=== PATIENT | female | born 1985 | race Caucasian/White ===

== ENCOUNTER 2019-05-03 14:36 | Outpatient (CLI) | payer BC | END 2019-05-03 14:37 | disposition home or self-care (01) | LOC: LAB 14:36 | PROVIDERS: ATTEND Obstetrics & Gynecology | DX: O09.40 Supervision of pregnancy with grand multiparity, unspecified trimester (principal); Z3A.00 Weeks of gestation of pregnancy not specified | CPT/HCPCS: 36415; 82950; 85027; 86850 ==

== ENCOUNTER 2019-05-13 14:47 | Outpatient (CLI) | payer BC ==
[2019-05-13 15:12] LABS: HGB - HEMOGLOBIN 12.3 g/dL (12.0-16.0); MEAN CORPUSCULAR HEMOGLOBIN 30.4 pg (27.0-31.0); MEAN CORPUSCULAR HGB CONC 33.2 g/dL (32.0-36.0); MEAN CORPUSCULAR VOLUME 91.6 fL (81.0-99.0); MEAN PLATELET VOLUME 10.9 fL (7.9-10.8); RED BLOOD COUNT 4.04 10^6/uL (4.20-5.40); RED CELL DISTRIBUTION WIDTH 12.7 % (12.0-15.0); WHITE BLOOD COUNT 13.6 x10^3/uL (4.8-10.8)
== END 2019-05-13 14:48 | disposition home or self-care (01) ==
LOC: LAB 14:47
PROVIDERS: ATTEND Obstetrics & Gynecology
DX: O46.93 Antepartum hemorrhage, unspecified, third trimester (principal); Z3A.00 Weeks of gestation of pregnancy not specified; O09.523 Supervision of elderly multigravida, third trimester
CPT/HCPCS: 36415; 85027

== ENCOUNTER 2019-05-15 07:34 | Outpatient (CLI) | payer BC ==
--- NOTE | 2019-05-15 13:41 | Ultrasound Report ---
Reason: SUPERVISION OF Procedure Date: 05/15/2019 Accession Number: [id number] / [id number] Procedure: US - OB Detailed Eval CPT Code: Final Report FULL RESULT: EXAM: COMPLETE OBSTETRICAL ULTRASOUND EXAM DATE: 05/15/2019 10:38 AM. CLINICAL HISTORY: anatomic survey. COMPARISON: None. TECHNIQUE: Real-time sonographic evaluation of the fetus performed by the mainframe systems engineer. Multiple entry level marketing representative static images were saved for review. Additional transvaginal imaging to more accurately evaluate cervical length/placental position/etc. The examination is markedly limited by advanced gestational age. DATING: Established EGA 30 weeks 3 days with ALYSSIA 07/21/2019 based on reported working due date. EGA 31 weeks 1 day with ALYSSIA 07/16/2019 based on LMP. EGA 31 weeks 0 days with ALYSSIA 07/17/2019 based on the current ultrasound. GENERAL EVALUATION Lundberg . Cardiac activity: 147 bpm. movement: Visualized. Presentation: Cephalic. Placenta: Anterior position. No evidence for previa. Umbilical cord: 3 vessel cord. Central placental cord origin. Amniotic fluid: Subjectively normal. MVP 2.7 cm and CADEN 8.4 cm. BIOMETRY Bi-Parietal Diameter (BPD): 7.7 cm, 31 weeks 0 days Head Circumference (HC): 28.5 cm, 31 weeks 2 days Abdominal Circumference (AC): 27.1 cm, 31 weeks 1 day Femur Length (FL): 5.7 cm, 30 weeks 0 days Estimated Weight: 1648 g, 52nd percentile for 30 weeks 3 days. ANATOMY The anatomy survey is limited. Visualization of intracranial structures is limited by acoustic windows and the cisterna magna as well as lateral ventricles are not well seen. The entire spine is not well-seen due to position in the advanced gestation. The coronal face and hands as well as the right and left upper extremities are not well seen. The midline falx, choroid plexus, cerebellum and profile as well as nasal bone view including nose and lips are adequately seen and normal. Cardiac situs is seen as normal with normal visualization of the four-chamber heart and left and right ventricular outflow tracts. The heart stomach relationship as well as the relationship to the bladder is normal and the visualized diaphragm appears normal. Kidneys and bladder as well as cord insertion appear normal. The bilateral lower extremities including leg foot relationships appear normal. MATERNAL STRUCTURES Uterus: Unremarkable. Cervix: Long and closed. Transabdominal length at least 3.6 cm. The bilateral adnexa are not well seen, presumably due to advanced gestational age. Right oophorectomy is reported. Free fluid: None. IMPRESSION: 1. Lundberg live intrauterine with gestational age 30 weeks 3 days based on reported working due date. 2. Estimated weight is within expected limits for assigned dating. 3. Limited anatomy survey with limitation of advanced gestational age. The face/lips and profile/nasal bone views are normal. RADIA
== END 2019-05-15 07:35 | disposition home or self-care (01) ==
LOC: DI 07:34
PROVIDERS: ATTEND Obstetrics & Gynecology
DX: O09.523 Supervision of elderly multigravida, third trimester (principal); Z3A.30 30 weeks gestation of pregnancy
CPT/HCPCS: 76811

== ENCOUNTER 2019-05-31 08:00 | Outpatient (CLI) | payer BC | END 2019-05-31 23:59 | disposition home or self-care (01) | LOC: LAB.R 08:00 | PROVIDERS: ATTEND Obstetrics & Gynecology | DX: O09.523 Supervision of elderly multigravida, third trimester (principal); Z3A.00 Weeks of gestation of pregnancy not specified | CPT/HCPCS: 82731; 87797 ==

== ENCOUNTER 2019-05-31 11:19 | Outpatient (CLI) | payer BC ==
[2019-05-31 11:32] VITALS: BP 126/73
[2019-05-31 13:08] LABS: BASOPHILS % (AUTO) 0.3 %; EOSINOPHILS # (AUTO) 0.2 10^3/uL (0.0-0.7); EOSINOPHILS % (AUTO) 1.4 %; LYMPHOCYTES # (AUTO) 2.4 10^3/uL (1.5-3.5); LYMPHOCYTES % (AUTO) 20.4 %; MEAN CORPUSCULAR HEMOGLOBIN 30.1 pg (27.0-31.0); MEAN CORPUSCULAR HGB CONC 32.9 g/dL (32.0-36.0); MEAN CORPUSCULAR VOLUME 91.5 fL (81.0-99.0); MEAN PLATELET VOLUME 11.3 fL (7.9-10.8); MONOCYTES # (AUTO) 0.8 10^3/uL (0.0-1.0); NEUTROPHILS # (AUTO) 8.3 10^3/uL (1.5-6.6); NEUTROPHILS % (AUTO) 69.9 %; PLT - PLATELET COUNT 197 10^3/uL (130-450); RED BLOOD COUNT 3.99 10^6/uL (4.20-5.40); RED CELL DISTRIBUTION WIDTH 12.9 % (12.0-15.0); WHITE BLOOD COUNT 11.8 x10^3/uL (4.8-10.8)
[2019-05-31 13:40] LABS: HB2 TOTAL 11.9 g/dL; HEMOGLOBIN A1C 0.47 g/dL; HEMOGLOBIN A1C % 5.8 % (4.6-6.2)
--- NOTE | 2019-06-13 10:28 | PROCEDURE REPORT ---
- HPI Diagnosis/Indication for NST: labor Current EDU 07/16/19 Gestation 33 Weeks and 3 Days 12 Para 7 Vital Signs Temperature 36.8 C 05/31/19 11:31 Heart Rate 84 05/31/19 11:31 Respiratory Rate 20 05/31/19 11:31 Blood Pressure 126/73 05/31/19 11:31 O2 Saturation 99 05/31/19 11:31 Temperature 36.8 C 05/31/19 11:31 Heart Rate 84 05/31/19 11:31 Respiratory Rate 05/31/19 11:31 Blood Pressure 126/73 05/31/19 11:31 O2 Saturation 99 05/31/19 11:31 - NST Procedure NST Procedure Start Date 05/31/19 Start Time 11:28 Stop Time 12:01 Vibroacoustic Stimulation Used No Patient States Movement Yes - Results and Plan Findings/Impression: BASE LINE 140 WITH ACCELERATIONS. NO CONTRACTIONS Plan: FOLLOWUP PRN.
== END 2019-05-31 13:15 | disposition home or self-care (01) ==
LOC: WFO 11:19 → FBP 11:20 → WFO 13:15
PROVIDERS: ATTEND Obstetrics & Gynecology
DX: O09.523 Supervision of elderly multigravida, third trimester (principal); Z3A.33 33 weeks gestation of pregnancy
CPT/HCPCS: 36415; 59025; 82950; 83036; 85025

== ENCOUNTER 2019-06-04 21:16 | Observation (INO) | payer BC ==
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
[2019-06-04 22:59] LABS: RUPTURE OF MEMBRANES PLUS NEGATIVE (NEGATIVE)
[2019-06-05 00:19] LABS: CANDIDA GROUP DNA NEGATIVE (NEGATIVE); CANDIDA KRUSEI DNA NEGATIVE (NEGATIVE); TRICHOMONAS VAGINALIS DNA NEGATIVE (NEGATIVE)
[2019-06-05 00:31] LABS: BILIRUBIN,URINE NEGATIVE (NEGATIVE); GLUCOSE, URINE (UA) NEGATIVE (NEGATIVE); KETONES,URINE (UA) NEGATIVE (NEGATIVE); LEUKOCYTE ESTERASE, URINE NEGATIVE (NEGATIVE); NITRITE,URINE NEGATIVE (NEGATIVE); OCCULT BLOOD,URINE TRACE-LYSE (NEGATIVE); PROTEIN,URINE NEGATIVE (NEGATIVE); UROBILINOGEN,URINE 0.2 (NORMAL) E.U./dL (NORMAL)
[2019-06-05 00:32] LABS: CLARITY,URINE CLEAR (CLEAR)
[2019-06-05 00:36] LABS: BACTERIA,URINE Few /HPF (None Seen); RBC,URINE 0-5 /HPF (0-5); SQUAMOUS EPITHELIAL CELL,UR FEW Squamous (<= Few)
--- NOTE | 2019-06-05 08:41 | Discharge Plan ---
Discharge Plan Problem Reviewed?: Yes Disposition: Home, Self Care Condition: Good Diet: Regular Activity Restrictions: No Restrictions Shower Restrictions: No Driving Restrictions: No No Smoking: If you smoke, Please STOP! Call for help. Follow-up with: Funmi Li MD [Provider Admit Priv/Credential] - 1-2 Days
--- NOTE | 2019-06-05 09:38 | DISCHARGE SUMMARY ---
Physician: Funmi Li MD DATE OF ADMISSION: 06/04/2019 DATE OF DISCHARGE: 06/05/2019 ADMISSION DIAGNOSES 1. Intrauterine at 34 weeks. 2. Vaginal bleeding during third trimester. 3. Abdominal pain during . DISCHARGE DIAGNOSES 1. Intrauterine at 34 weeks. 2. Vaginal bleeding during third trimester. 3. Abdominal pain during . 4. Lumbago. HOSPITAL COURSE: Patient was admitted, and placed in observation for abdominal pain and bleeding in the third trimester. She is a G11, P7 with all vaginal deliveries. See H and P for details. She had an episode of bright red bleeding that dripped into the toilet. In triage, she had maroon blood in the vault that was about 3 mL in amount. During the rest of her hospitalization, she had a bit of blood when she wiped. This was brown. Otherwise, she had no further bleeding. wellbei ng was reassuring throughout the hospitalization. Immediately prior to discharge, she had a category -1 tracing. She also complained of low abdominal and back pain, and a sensation that the baby was ri ght there and going to fall out. Her cervical examination was unchanged at fingertip external os, un able to reach the internal os, long, medium, mid position. She did not register contractions on toco lysis during her hospitalization. She did not have any contractions with palpation either. She had a negative Romberg plus, negative vaginitis panel, negative UA. She had a negative fibronectin on 05/31/2019. Patient has had low back problems throughout her life and feels like these have vickie en worse as of late. Currently, I am attributing her problems to musculoskeletal back pain flare, co mbined with routine cervical remodeling in the third trimester. However, the patient was counseled t hat if things were to change at all, she is to return back to Labor and Delivery for reevaluation. I will see her in clinic in 2 days to recheck her cervix at that time. Patient requested medications for sleep and pain. She was advised that she could take Tylenol. Stretches were shown to her that s he can use for comfort. She can use Unisom or Benadryl at night. Sleep hygiene was reviewed. DISCHARGE MEDICATIONS: Tylenol p.r.n. pain. Otherwise, resume home medications. CONDITION: Good. DISPOSITION: Home. FOLLOWUP: Follow up in 2 days. TD: 06/05/2019 08:56
[2019-06-05 11:16] VITALS: BP 128/73
== END 2019-06-05 09:43 | disposition home or self-care (01) ==
LOC: WFO 21:16 → FBP 21:18 → WFO 23:41 → UNDOADMOB 23:42 → FBP 23:42
PROVIDERS: ADMIT Obstetrics & Gynecology; ATTEND Obstetrics & Gynecology
DX: O46.93 Antepartum hemorrhage, unspecified, third trimester (principal); Z3A.34 34 weeks gestation of pregnancy; O99.89 Other specified diseases and conditions complicating pregnancy, childbirth and the puerperium; R10.9 Unspecified abdominal pain; M54.5 Low back pain; O99.333 Smoking (tobacco) complicating pregnancy, third trimester; Z91.81 History of falling
CPT/HCPCS: 59025; 81001; 84112; 87481; 87661; 87801; G0378; 82731; 87086

== ENCOUNTER 2019-06-12 17:28 | Outpatient (CLI) | payer BC ==
[2019-06-12 17:56] VITALS: BP 118/76
[2019-06-12 18:25] LABS: BILIRUBIN,URINE NEGATIVE (NEGATIVE); GLUCOSE, URINE (UA) NEGATIVE (NEGATIVE); KETONES,URINE (UA) NEGATIVE (NEGATIVE); LEUKOCYTE ESTERASE, URINE NEGATIVE (NEGATIVE); NITRITE,URINE NEGATIVE (NEGATIVE); OCCULT BLOOD,URINE NEGATIVE (NEGATIVE); PROTEIN,URINE NEGATIVE (NEGATIVE); UROBILINOGEN,URINE 0.2 (NORMAL) E.U./dL (NORMAL)
[2019-06-12 18:33] LABS: CLARITY,URINE CLEAR (CLEAR)
[2019-06-12 18:34] LABS: BACTERIA,URINE Rare /HPF (None Seen); RBC,URINE None Seen /HPF (0-5); SQUAMOUS EPITHELIAL CELL,UR MOD Squamous (<= Few)
[2019-06-12] MEDS ORDERED: ONDANSETRON ODT 4 MG TABLET TL ONE (20:00)
--- NOTE | 2019-06-14 17:26 | PROVIDER PROGRESS NOTE ---
- HPI Chief Complaint: Other (Patient is a 33 yo with hx of x7. Presents with rectal pain 2/2 hemorrhoids. Has some rectal bleeding and possibly light vaginal bleeding. Mild nausea with cramps. No LOF. Endorses FM.) Current : Current EDU 07/16/19 Gestation 35 Weeks and 1 Days 12 Para 7 Vital Signs Temperature 99.0 F 06/12/19 17:43 Heart Rate 98 06/12/19 17:43 Respiratory Rate 20 06/12/19 17:43 Blood Pressure 125/79 06/12/19 17:43 O2 Saturation 99 06/12/19 17:43 Temperature 99.0 F 06/12/19 17:43 Heart Rate 94 06/12/19 17:55 Respiratory Rate 18 06/12/19 17:55 Blood Pressure 118/76 06/12/19 17:55 O2 Saturation 99 06/12/19 17:55 - Procedures OB Procedure Performed: NST Diagnosis/Indication for NST: labor NST Procedure: NST Procedure Start Time 11:28 Stop Time 12:01 EFM 145 mod jamel 15x15 accels no decels TOCO: quiet Service Date of procedure: 06/12/19 Procedure Details: Cat I tracing TOCO quiet RN exam indicated sterile vaginal exam of Closed/long/high GBS collected at prior clinic visit; neg on 05/31/2019 No blood on exam glove FFN negative Findings: No evidence of labor Ongoing issues with hemorrhoids - Plan Plan: Reassured patient regarding exam and lab results Rx for hydrocortisone suppositories for hemorrhoids submitted as well as rx for zofran Warning signs reviewed RTC as per routine OB care
== END 2019-06-12 19:50 | disposition home or self-care (01) ==
LOC: WFO 17:28 → FBP 17:29 → WFO 19:50
PROVIDERS: ATTEND Obstetrics & Gynecology
DX: O22.43 Hemorrhoids in pregnancy, third trimester (principal); Z3A.35 35 weeks gestation of pregnancy
CPT/HCPCS: 81001; 82731; 99213; Q0162; 87086

== ENCOUNTER 2019-06-15 14:26 | Outpatient (CLI) | payer BC ==
[2019-06-15 14:39] VITALS: BP 125/81
--- NOTE | 2019-06-20 10:24 | PROCEDURE REPORT ---
- HPI Diagnosis/Indication for NST: Other (IBS with rectal bleeding. needed Ob clearence) Current EDU 07/16/19 Gestation 35 Weeks and 4 Days 12 Para 7 Vital Signs Temperature 36.8 C 06/15/19 14:38 Heart Rate 88 06/15/19 14:38 Respiratory Rate 18 06/15/19 14:38 Blood Pressure 125/81 H 06/15/19 14:38 O2 Saturation 100 06/15/19 14:38 Temperature 36.8 C 06/15/19 14:38 Heart Rate 88 06/15/19 14:38 Respiratory Rate 18 06/15/19 14:38 Blood Pressure 125/81 H 06/15/19 14:38 O2 Saturation 100 06/15/19 14:38 - NST Procedure NST Procedure Start Time 11:28 Stop Time 12:01 - Results and Plan Findings/Impression: bas line 123 varribility with 15x15 accelerations. reactive NST Plan: Ob clearance with ER to compleat evaluation.
--- NOTE | 2019-06-20 10:29 | PROCEDURE REPORT ---
- HPI Diagnosis/Indication for NST: Other (bleeding) Current EDU 07/16/19 Gestation 35 Weeks and 4 Days 12 Para 7 Vital Signs Temperature 36.8 C 06/15/19 14:38 Heart Rate 88 06/15/19 14:38 Respiratory Rate 18 06/15/19 14:38 Blood Pressure 125/81 H 06/15/19 14:38 O2 Saturation 100 06/15/19 14:38 Temperature 36.8 C 06/15/19 14:38 Heart Rate 88 06/15/19 14:38 Respiratory Rate 18 06/15/19 14:38 Blood Pressure 125/81 H 06/15/19 14:38 O2 Saturation 100 06/15/19 14:38 - NST Procedure NST Procedure Start Time 11:28 Stop Time 12:01 - Results and Plan Findings/Impression: reactive NST, minimal uterine irritability. Plan: ultrasound showed no abruption cx long and closed
== END 2019-06-15 15:30 | disposition home or self-care (01) ==
LOC: WFO 14:26 → FBP 14:27 → WFO 15:30
PROVIDERS: ATTEND Obstetrics & Gynecology
DX: O99.613 Diseases of the digestive system complicating pregnancy, third trimester (principal); K58.9 Irritable bowel syndrome, unspecified; Z3A.35 35 weeks gestation of pregnancy
CPT/HCPCS: 99212; 99213

== ENCOUNTER 2019-06-28 10:00 | Outpatient (CLI) | payer BC ==
[2019-06-28 21:10] LABS: TRICHOMONAS VAGINALIS DNA NEGATIVE (NEGATIVE)
== END 2019-06-28 23:59 | disposition home or self-care (01) ==
LOC: LAB.R 10:00
PROVIDERS: ATTEND Obstetrics & Gynecology
DX: Z36.85 Encounter for antenatal screening for Streptococcus B (principal); Z11.3 Encounter for screening for infections with a predominantly sexual mode of transmission
CPT/HCPCS: 87491; 87591; 87661; 87797

== ENCOUNTER 2019-06-29 09:19 | Outpatient (CLI) | payer BC | END 2019-06-29 09:20 | disposition home or self-care (01) | LOC: LAB 09:19 | PROVIDERS: ATTEND Obstetrics & Gynecology | DX: O09.523 Supervision of elderly multigravida, third trimester (principal); Z3A.00 Weeks of gestation of pregnancy not specified | CPT/HCPCS: 36415; 82951; 82952 ==

== ENCOUNTER 2019-07-04 12:36 | Outpatient (CLI) | payer BC ==
--- NOTE | 2019-07-06 08:30 | Ultrasound Report ---
Reason: GESTATIONAL DIABETES, GROWTH Procedure Date: 07/04/2019 Accession Number: [id number] / [id number] Procedure: US - OB F/U or Repeat CPT Code: Final Report FULL RESULT: EXAM: FOLLOW-UP OBSTETRICAL ULTRASOUND EXAM DATE: 07/04/2019 01:05 PM. CLINICAL HISTORY: GESTATIONAL DIABETES, GROWTH. COMPARISON: OB DETAILED EVAL 05/15/2019 7:41 AM. TECHNIQUE: Real-time sonographic evaluation of the fetus performed by the studio artist. Multiple hr representative static images were saved for review. DATING: Established EGA 37 weeks, 4 days with ALYSSIA 07/21/2019 based on assigned dating. EGA 38 weeks, 3 days with ALYSSIA 07/17/2019 based on prior ultrasound 05/15/2019. EGA 36 weeks, 0 days with ALYSSIA 08/01/2019 based on the current ultrasound. GENERAL EVALUATION [place] . Cardiac activity: 147 bpm. movement: Visualized. Presentation: Cephalic. Placenta: Anterior position. Amniotic fluid: Normal. CADEN 8.4 cm. MVP 2.7 cm. BIOMETRY Bi-Parietal Diameter (BPD): 9 cm, 36 weeks, 3 days Head Circumference (HC): 32 cm, 36 weeks, 0 days Abdominal Circumference (AC): 33 cm, 37 weeks, 1 day Femur Length (FL): 6.7 cm, 34 weeks, 3 days Estimated Weight: 2885 g, 26th percentile for 37 weeks, 4 days. ANATOMY No abnormality evident on limited views. movement noted by studio artist. MATERNAL STRUCTURES Ovaries were not identified. No adnexal abnormality evident. IMPRESSION: 1. Lundberg live intrauterine with gestational age 37 weeks, 4 days based on assigned dating. 2. Estimated weight is within expected limits for assigned dating. Estimated weight is currently at 26th percentile, previously 52nd percentile on ultrasound 05/15/2019. 3. Normal amniotic fluid volume. RADIA
== END 2019-07-04 12:37 | disposition home or self-care (01) ==
LOC: DI 12:36
PROVIDERS: ATTEND Obstetrics & Gynecology
DX: O24.419 Gestational diabetes mellitus in pregnancy, unspecified control (principal); Z3A.37 37 weeks gestation of pregnancy
CPT/HCPCS: 76816

== ENCOUNTER 2019-07-05 12:16 | Outpatient (CLI) | payer BC ==
[2019-07-05 13:10] LABS: PROTEIN/CREATININE RATIO,URINE 0.1 (<=0.2)
[2019-07-05 13:30] LABS: BASOPHILS % (AUTO) 0.3 %; EOSINOPHILS # (AUTO) 0.1 10^3/uL (0.0-0.7); EOSINOPHILS % (AUTO) 0.7 %; HGB - HEMOGLOBIN 12.3 g/dL (12.0-16.0); LYMPHOCYTES # (AUTO) 1.9 10^3/uL (1.5-3.5); LYMPHOCYTES % (AUTO) 17.9 %; MEAN CORPUSCULAR HEMOGLOBIN 29.1 pg (27.0-31.0); MEAN CORPUSCULAR HGB CONC 32.8 g/dL (32.0-36.0); MEAN CORPUSCULAR VOLUME 88.7 fL (81.0-99.0); MEAN PLATELET VOLUME 11.3 fL (7.9-10.8); MONOCYTES # (AUTO) 0.8 10^3/uL (0.0-1.0); MONOCYTES % (AUTO) 7.5 %; NEUTROPHILS # (AUTO) 7.7 10^3/uL (1.5-6.6); NEUTROPHILS % (AUTO) 72.7 %; PLT - PLATELET COUNT 198 10^3/uL (130-450); RED BLOOD COUNT 4.23 10^6/uL (4.20-5.40); RED CELL DISTRIBUTION WIDTH 14.1 % (12.0-15.0); WHITE BLOOD COUNT 10.6 x10^3/uL (4.8-10.8)
[2019-07-05] MEDS ORDERED: METOCLOPRAMIDE 10 MG TABLET PO ONE (13:30)
[2019-07-05] MEDS ORDERED: ACETAMINOPHEN 500 MG TABLET PO ONE (13:30)
[2019-07-05 13:54] LABS: URIC ACID 3.8 mg/dL (2.6-7.2)
[2019-07-05 14:18] LABS: ALBUMIN 2.8 g/dL (3.2-5.5); ALBUMIN/GLOBULIN RATIO 0.8 (1.0-2.2); BILIRUBIN,TOTAL 0.6 mg/dL (0.2-1.0); CALCIUM 8.3 mg/dL (8.5-10.3); CREATININE 0.4 mg/dL (0.4-1.0); TOTAL PROTEIN 6.3 g/dL (6.7-8.2)
[2019-07-05 14:24] VITALS: BP 114/98
--- NOTE | 2019-07-05 18:15 | PROCEDURE REPORT ---
- HPI Diagnosis/Indication for NST: Other (rule-out preeclampsia) Current EDU 07/16/19 Gestation 38 Weeks and 3 Days 12 Para 7 Vital Signs Temperature 99.0 F 07/05/19 12:35 Heart Rate 90 07/05/19 12:35 Respiratory Rate 16 07/05/19 12:35 Blood Pressure 118/82 H 07/05/19 12:35 O2 Saturation 100 07/05/19 12:35 Temperature 99.0 F 07/05/19 12:35 Heart Rate 92 07/05/19 13:30 Respiratory Rate 16 07/05/19 12:35 Blood Pressure 114/98 H 07/05/19 13:44 O2 Saturation 100 07/05/19 13:14 - NST Procedure NST Procedure Start Date 07/05/19 Start Time 12:44 Stop Time 13:29 Vibroacoustic Stimulation Used No Patient States Movement Yes - Results and Plan Findings/Impression: Pt with multiple somatic complaints in clinic today--see centricity note. Included VILLAVICENCIO and visual changes. Pt received tylenol and reglan in triage for her VILLAVICENCIO. PIH labs were normal, P:C normal, serial BPs normal. Category 1 NST IOL arranged for 4d from now. To ER to eval chest "tightness" Preeclampsia precautions given
== END 2019-07-05 14:46 | disposition home or self-care (01) ==
LOC: WFO 12:16 → FBP 12:18 → WFO 14:46
PROVIDERS: ATTEND Obstetrics & Gynecology
DX: O99.89 Other specified diseases and conditions complicating pregnancy, childbirth and the puerperium (principal); R51 Headache; H53.9 Unspecified visual disturbance; R07.9 Chest pain, unspecified; Z3A.38 38 weeks gestation of pregnancy
CPT/HCPCS: 36415; 59025; 80053; 82570; 83615; 84156; 84450; 84550; 85025; 86850; 86900; 86901; 99214

== ENCOUNTER 2019-07-05 14:50 | Emergency (ER) | payer BC ==
--- NOTE | 2019-07-05 15:55 | ED Physician Documentation ---
PD HPI CHEST PAIN - Stated complaint Stated Complaint: CP/SENT BY OB - Chief complaint Chief Complaint: Cardiac - History obtained from History obtained from: Patient - History of Present Illness Timing - onset: Other (33-year-old woman is preparing to have her 8th child. She is going to be induced next week. She is been having some mild substernal discomfort for the last few days. Seems to be on and off. Is not exertional. Does not seem to change with position, although she vacillates and says it might get a little worse when she is supine she is very mild shortness of breath but she thinks that is an appropriate thing for this stage of . She also had some heart fluttering this morning. Denies pedal edema or calf pain but briefly had left calf pain a few days ago.) Review of Systems Constitutional: denies: Fever, Chills Cardiac: denies: Pedal edema, Calf pain Respiratory: reports: Dyspnea. denies: Cough, Hemoptysis, Wheezing PD PAST MEDICAL HISTORY - Allergies Allergies/Adverse Reactions: Allergies Allergy/AdvReac Type Severity Reaction Status Date / Time ibuprofen AdvReac Hives Verified 07/05/19 15:24 isoniazid AdvReac Edema Verified 07/05/19 15:24 PD ED PE NORMAL - Vitals Vital signs reviewed: Yes - General General: Alert and oriented X 3, No acute distress, Other (She is obviously in late term with a very gravid uterus and large belly) - HEENT HEENT: PERRL, EOMI - Neck Neck: Supple, no meningeal sign, No bony TTP - Cardiac Cardiac: RRR, No murmur - Respiratory Respiratory: No respiratory distress, Clear bilaterally - Abdomen Abdomen: Non tender - Extremities Extremities: No edema, No calf tenderness / cord - Neuro Neuro: Alert and oriented X 3, Normal speech Results - Vitals Vitals: Vital Signs - 24 hr 07/05/19 07/05/19 15:00 16:35 Temperature 37 C Heart Rate 87 72 Respiratory 17 19 Rate Blood Pressure 122/80 124/80 O2 Saturation 100 100 Oxygen O2 Source Room air - EKG (time done) 1506 Rate: Rate (enter#) (87) Rhythm: NSR [place]: Normal Intervals: Normal IN QRS: Normal Ischemia: Normal ST segments Computer interpretation: Agree with computer - Labs Labs: Laboratory Tests 0207/05/19 07/05/19 15:55 15:55 15:55 WBC 11.1 H RBC 4.31 Hgb 12.5 Hct 38.4 MCV 89.1 MCH 29.0 MCHC 32.6 RDW 14.2 Plt Count 184 MPV 10.8 Neut # (Auto) 7.8 H Lymph # (Auto) 2.4 [place] # (Auto) 0.8 Eos # (Auto) 0.1 Baso # (Auto) 0.0 Absolute Nucleated RBC 0.00 Nucleated RBC % 0.0 D-Dimer Sodium 136 Potassium 3.7 Chloride 104 Carbon Dioxide 20 L Anion Gap 12.0 BUN 10 Creatinine 0.5 Estimated GFR (MDRD) 140 Glucose 102 H Calcium 8.7 Total Bilirubin 0.2 AST 18 ALT 13 Alkaline Phosphatase 104 Troponin I High Sens 6.3 Total Protein 6.5 L Albumin 2.9 L Globulin 3.6 Albumin/Globulin Ratio 0.8 L Lipase 27 07/05/19 15:55 WBC RBC Hgb Hct MCV MCH MCHC RDW Plt Count MPV Neut # (Auto) Lymph # (Auto) [place] # (Auto) Eos # (Auto) Baso # (Auto) Absolute Nucleated RBC Nucleated RBC % D-Dimer 282.7 H Sodium Potassium Chloride Carbon Dioxide Anion Gap BUN Creatinine Estimated GFR (MDRD) Glucose Calcium Total Bilirubin AST ALT Alkaline Phosphatase Troponin I High Sens Total Protein Albumin Globulin Albumin/Globulin Ratio Lipase PD MEDICAL DECISION MAKING - ED course ED course: 33-year-old woman presents in late term with some very atypical chest pain and palpitations that are both resolved. Her EKG is normal and nonischemic. We will do a troponin but basically her heart score is 0. Given her status DVT is considered and we will use a adjusted d- dimer to screen for that. The d-dimer level for third trimester would be considered negative, he r troponin is negative. Departure - Departure Disposition: 01 Home, Self Care Clinical Impression: Atypical chest pain Qualifiers: Weeks of gestation: unspecified Qualified Code(s): Z34.90 - Encounter for supervision of normal , unspecified, unspecified trimester Condition: Good Record reviewed to determine appropriate education?: Yes Instructions: ED Chest Pain NonCardiac Comments: Return for new or worsening symptoms, otherwise follow-up for induction on Tuesday as scheduled. Discharge Date/Time: 07/05/19 16:35
[2019-07-05 16:03] LABS: BASOPHILS % (AUTO) 0.3 %; EOSINOPHILS # (AUTO) 0.1 10^3/uL (0.0-0.7); EOSINOPHILS % (AUTO) 0.9 %; HGB - HEMOGLOBIN 12.5 g/dL (12.0-16.0); LYMPHOCYTES # (AUTO) 2.4 10^3/uL (1.5-3.5); LYMPHOCYTES % (AUTO) 21.2 %; MEAN CORPUSCULAR HGB CONC 32.6 g/dL (32.0-36.0); MEAN CORPUSCULAR VOLUME 89.1 fL (81.0-99.0); MEAN PLATELET VOLUME 10.8 fL (7.9-10.8); MONOCYTES # (AUTO) 0.8 10^3/uL (0.0-1.0); MONOCYTES % (AUTO) 6.9 %; NEUTROPHILS # (AUTO) 7.8 10^3/uL (1.5-6.6); NEUTROPHILS % (AUTO) 69.9 %; PLT - PLATELET COUNT 184 10^3/uL (130-450); RED BLOOD COUNT 4.31 10^6/uL (4.20-5.40); RED CELL DISTRIBUTION WIDTH 14.2 % (12.0-15.0); WHITE BLOOD COUNT 11.1 x10^3/uL (4.8-10.8)
[2019-07-05 16:17] LABS: ALBUMIN 2.9 g/dL (3.2-5.5); ALBUMIN/GLOBULIN RATIO 0.8 (1.0-2.2); BILIRUBIN,TOTAL 0.2 mg/dL (0.2-1.0); CALCIUM 8.7 mg/dL (8.5-10.3); CREATININE 0.5 mg/dL (0.4-1.0); TOTAL PROTEIN 6.5 g/dL (6.7-8.2)
[2019-07-05 16:56] VITALS: BP 124/80
== END 2019-07-05 16:35 | disposition home or self-care (01) ==
LOC: ED 14:50
DX: O99.89 Other specified diseases and conditions complicating pregnancy, childbirth and the puerperium (principal); R07.89 Other chest pain; R51 Headache; H53.9 Unspecified visual disturbance; R07.9 Chest pain, unspecified; Z3A.38 38 weeks gestation of pregnancy
CPT/HCPCS: 36415; 59025; 80053; 82570; 83615; 83690; 84156; 84450; 84484; 84550; 85025; 85379; 86850; 86900; 86901; 93005; 99283; 99284; A9270

== ENCOUNTER 2019-07-09 07:35 | Inpatient (IN) | payer BC ==
[2019-07-09] MEDS ORDERED: SODIUM CHLORIDE FLUSH 0.9% 10 ML SYRINGE IVP PRN (09:13)
[2019-07-09 09:24] LABS: CALCIUM 8.5 mg/dL (8.5-10.3); CREATININE 0.5 mg/dL (0.4-1.0)
[2019-07-09 09:25] LABS: BASOPHILS % (AUTO) 0.4 %; EOSINOPHILS # (AUTO) 0.1 10^3/uL (0.0-0.7); EOSINOPHILS % (AUTO) 0.8 %; LYMPHOCYTES # (AUTO) 1.9 10^3/uL (1.5-3.5); LYMPHOCYTES % (AUTO) 17.1 %; MEAN CORPUSCULAR HEMOGLOBIN 29.6 pg (27.0-31.0); MEAN CORPUSCULAR HGB CONC 33.2 g/dL (32.0-36.0); MEAN CORPUSCULAR VOLUME 89.3 fL (81.0-99.0); MEAN PLATELET VOLUME 11.6 fL (7.9-10.8); MONOCYTES # (AUTO) 0.7 10^3/uL (0.0-1.0); MONOCYTES % (AUTO) 6.5 %; NEUTROPHILS # (AUTO) 8.1 10^3/uL (1.5-6.6); NEUTROPHILS % (AUTO) 74.3 %; PLT - PLATELET COUNT 176 10^3/uL (130-450); RED BLOOD COUNT 4.39 10^6/uL (4.20-5.40); RED CELL DISTRIBUTION WIDTH 14.2 % (12.0-15.0); WHITE BLOOD COUNT 10.9 x10^3/uL (4.8-10.8)
[2019-07-09] MEDS: miSOPROStoL 100 MCG TABLET BC SCH ×4 (10:26→22:03)
[2019-07-09] MEDS ORDERED: ACETAMINOPHEN 325 MG TABLET PO PRN (11:09)
[2019-07-09] MEDS: LACTATED RINGERS 1,000 ML IV SCH (19:41)
[2019-07-09] MEDS: SODIUM CHLORIDE FLUSH 0.9% 10 ML SYRINGE IVP SCH ×2 (19:42→20:59)
--- NOTE | 2019-07-09 19:53 | HISTORY & PHYSICAL EXAMINATION ---
Admit History - Visit Reason Visit Reason: Other (IOL for gestational diabetes) - : G12 Parity: [id number] Premature: 7 Care: positive: [facility] Risk/History: positive: Gestational diabetes, Other (Hx of ) Complications This : positive: Gestational diabetes, Other (grand multiparity) Smoking Status: Never smoker - Mother's Labs Mother's Blood Type: positive: A Mother's RH: positive: Positive GBS: positive: Group B Step Negative Rubella Status: positive: Immune - Other Maternal History Other Maternal History: Patient is a 33 yo with hx of multiple , grandmultiparity, and gestational diabetes presents for IOL. Declined 3H OGTT until 37 weeks,has not been tracking glucose levels and status is unknown. Has never had progress beyond 36 weeks. Growth US 26%ile on 07/04/2019 Meds/Allgy - Allergies Allergies/Adverse Reactions: Allergies Allergy/AdvReac Type Severity Reaction Status Date / Time ibuprofen AdvReac Hives Verified 07/05/19 15:24 isoniazid AdvReac Edema Verified 07/05/19 15:24 Review of Systems - Other Findings Other Findings: As per HPI, otherwise remaining systems are negative Physical - Abdominal Exam Vital Signs: 134/82 92 18 Contraction Frequency (min/apart): irritable - Monitoring Heart Rate Baseline: 145 Strip Review: positive: Category I - Presentation Presentation: positive: Vertex - Vaginal Exam Membranes: positive: Membranes intact Dilation (in cm): 2.5 Effacement (%): 20 Station: positive: -2 Cervical Position: positive: Posterior - Speculum Exam Speculum Exam Performed: positive: No Plan for Labor - Plan For Labor I expect patient to be DC'd or transferred within 96 hours.: Yes Plan for Labor: 33 yo at 39w0d here for IOL for GDM IOL: Unfavorable cervix -Cervical ripening with misoprostol -Consider Roche balloon -Pitocin when favorable GDM: unknown status as has not been profiling -POC glucose: fasting and 1 hour PP -Call MD for BG > 160 FWB: Vertex, EFW 26%ile, GBS neg, Cat I tracing -CEFM Grandmultiparity; -Does not have hx of fast labor -Pelvic proven to 36 week fetus; labor progress may not reflect multiparity -At risk for PPH, have uterotonics in the room -Type and cross for 2 units PRBCs PAIN: -Epidural as requested -Limit fentanyl to max cumulative dose of 200 mcg and not to be given after 6 cm -Nitrous oxide as requested Anticipate
--- NOTE | 2019-07-09 20:11 | PROVIDER PROGRESS NOTE ---
Subjective - Prog Note Date Prog Note Date: 07/09/19 Prog Note Time: 20:10 - Subjective Subjective: Has had 3 doses of misoprostol Patient reports discomfort CTX every 4-5 minutes while within miso window; now irregular No LOF Objective - Vital Signs/Intake & Output Reviewed Vital Signs: Yes Vital Signs: 134/82 92 18 Intake & Output: Intake & Output 07/06/19 07/07/19 07/08/19 07/09/19 23:59 23:59 23:59 23:59 Intake Total 500 Balance 500 - Objective General Appearance: positive: No acute distress Neck: positive: Nml inspection Respiratory: positive: No respiratory distress Abdomen: positive: Non-tender Skin: positive: Color nml Neurologic/Psychiatric: positive: Oriented x3 Comments/Other: SVE 2.5/50/-2 per RN exam - Lab Results Fish Bones: 07/09/19 08:30 07/09/19 08:30 Other Labs: Lab Results x24hrs 07/09/19 07/09/19 07/09/19 Range/Units 18:22 12:52 10:41 WBC (4.8-10.8) x10^3/uL RBC (4.20-5.40) 10^6/uL Hgb (12.0-16.0) g/dL Hct (37.0-47.0) % MCV (81.0-99.0) fL MCH (27.0-31.0) pg MCHC (32.0-36.0) g/dL RDW (12.0-15.0) % Plt Count (130-450) 10^3/uL MPV (7.9-10.8) fL Neut # (Auto) (1.5-6.6) 10^3/uL Lymph # (Auto) (1.5-3.5) 10^3/uL [place] # (Auto) (0.0-1.0) 10^3/uL Eos # (Auto) (0.0-0.7) 10^3/uL Baso # (Auto) (0.0-0.1) 10^3/uL Absolute Nucleated RBC x10^3/uL Nucleated RBC % /100WBC Sodium (135-145) mmol/L Potassium (3.5-5.0) mmol/L Chloride (101-111) mmol/L Carbon Dioxide (21-32) mmol/L Anion Gap (6-13) BUN (6-20) mg/dL Creatinine (0.4-1.0) mg/dL Estimated GFR (MDRD) (>89) Glucose (70-100) mg/dL POC Whole Bld Glucose 138 H 139 H 103 H (70 - 100) mg/dL Calcium (8.5-10.3) mg/dL Blood Type Antibody Screen Crossmatch IS Only 07/09/19 07/09/19 07/09/19 Range/Units 08:30 08:30 08:30 WBC 10.9 H (4.8-10.8) x10^3/uL RBC 4.39 (4.20-5.40) 10^6/uL Hgb 13.0 (12.0-16.0) g/dL Hct 39.2 (37.0-47.0) % MCV 89.3 (81.0-99.0) fL MCH 29.6 (27.0-31.0) pg MCHC 33.2 (32.0-36.0) g/dL RDW 14.2 (12.0-15.0) % Plt Count 176 (130-450) 10^3/uL MPV 11.6 H (7.9-10.8) fL Neut # (Auto) 8.1 H (1.5-6.6) 10^3/uL Lymph # (Auto) 1.9 (1.5-3.5) 10^3/uL [place] # (Auto) 0.7 (0.0-1.0) 10^3/uL Eos # (Auto) 0.1 (0.0-0.7) 10^3/uL Baso # (Auto) 0.0 (0.0-0.1) 10^3/uL Absolute Nucleated RBC 0.00 x10^3/uL Nucleated RBC % 0.0 /100WBC Sodium 136 (135-145) mmol/L Potassium 3.8 (3.5-5.0) mmol/L Chloride 106 (101-111) mmol/L Carbon Dioxide 18 L (21-32) mmol/L Anion Gap 12.0 (6-13) BUN 11 (6-20) mg/dL Creatinine 0.5 (0.4-1.0) mg/dL Estimated GFR (MDRD) 140 (>89) Glucose 103 H (70-100) mg/dL POC Whole Bld Glucose (70 - 100) mg/dL Calcium 8.5 (8.5-10.3) mg/dL Blood Type A POSITIVE Antibody Screen NEGATIVE Crossmatch IS Only See Detail Assessment/Plan - Problem List (1) Impression: IOL at 39 wga -Minimal change in SVE per RN exam -Cont with misoprostol for cervical ripening GDM: BG less than 140 -cont to monitor Cat I tracing Misoprostol as soon as staffing appropriate Qualifiers: Weeks of gestation: unspecified Qualified Code(s): Z34.90 - Encounter for supervision of normal , unspecified, unspecified trimester
[2019-07-09] MEDS ORDERED: diphenhydrAMINE 25 MG CAPSULE PO PRN ×2 (20:37→20:54)
[2019-07-09] MEDS ORDERED: miSOPROStoL 200 MCG TABLET ONE (22:02)
[2019-07-10] MEDS ORDERED: ROPIVACAINE 0.2% 200 MG/100 ML BAG EP ONE (01:30)
--- NOTE | 2019-07-10 01:31 | ANESTHESIA ---
Pre-Anesthesia VS, & Labs - Diagnosis Active labor - Procedure vaginal delivery Height 5 ft 3 in Weight (kg) 105.007 kg Body Mass Index 40.9 - NPO Other (clear liquids) - Is Patient ?: Yes - Lab Results Current Lab Results: Laboratory Tests 07/09/19 18:22: POC Whole Bld Glucose 138 H 07/09/19 12:52: POC Whole Bld Glucose 139 H 07/09/19 10:41: POC Whole Bld Glucose 103 H 07/09/19 08:30: Blood Type A POSITIVE, Antibody Screen NEGATIVE, Crossmatch IS Only See Detail 07/09/19 08:30: WBC 10.9 H, RBC 4.39, Hgb 13.0, Hct 39.2, MCV 89.3, MCH 29.6, MCHC 33.2, RDW 14.2, Plt Count 176, MPV 11.6 H, Neut # (Auto) 8.1 H, Lymph # (Auto) 1.9, Towns # (Auto) 0.7, Eos # (Auto) 0.1, Baso # (Auto) 0.0, Absolute Nucleated RBC 0.00, Nucleated RBC % 0.0 07/09/19 08:30: Sodium 136, Potassium 3.8, Chloride 106, Carbon Dioxide 18 L, Anion Gap 12.0, BUN 11, Creatinine 0.5, Estimated GFR (MDRD) 140, Glucose 103 H, Calcium 8.5 Fish Bones: 07/09/19 08:30 07/09/19 08:30 Home Medications and Allergies Active Medications Acetaminophen (Tylenol) 650 mg PO Q6H PRN PRN Reason: Pain or Fever > 38C (100.4F) Diphenhydramine HCl (Benadryl) 25 - 50 mg PO HS PRN PRN Reason: Insomnia Last Admin: 07/09/19 20:58 Dose: 50 mg Lactated Ringer's (Lr) 1,000 mls @ 100 mls/hr IV .Q10H TRELL Last Admin: 07/09/19 19:41 Dose: Not Given Metoclopramide HCl (Reglan) 5 mg PO Q6H PRN PRN Reason: HEADACHE Misoprostol (Cytotec) 50 mcg BC Q4H TRELL Last Admin: 07/09/19 22:03 Dose: 50 mcg Sodium Chloride (Normal Saline Flush 0.9%) 10 ml IVP 0100,0900,1700 TRELL Last Admin: 07/09/19 20:59 Dose: 10 ml Sodium Chloride (Normal Saline Flush 0.9%) 10 ml IVP PRN PRN PRN Reason: NEEDED PER PROVIDER ORDERS Allergies/Adverse Reactions: Allergies Allergy/AdvReac Type Severity Reaction Status Date / Time ibuprofen AdvReac Hives Verified 07/05/19 15:24 isoniazid AdvReac Edema Verified 07/05/19 15:24 Anes History & Medical History - Anesthetic History Anesthesia Complications: reports: No previous complications - Medical History Cardiovascular: reports: None Pulmonary: reports: Asthma (childhood) Gastrointestinal: reports: None Urinary: reports: None Neuro: reports: None Musculoskeletal: reports: None Endocrine/Autoimmune: reports: Other (Gestation diabetes) Blood Disorders: reports: None Skin: reports: None Smoking Status: Never smoker Psychosocial: reports: Cannabis (daily) - Surgical History Gynecologic: Other (Dermoid cyst removal) - Obstetrical History : G12 Parity: 6647 Events: positive: Gestational diabetes, Other (Hx of ) Complications: positive: Gestational diabetes, Other (grand multiparity) Exam General: Alert, Oriented x3, Cooperative, No acute distress Dental: WNL Mouth Openin Fingerbreadth Neck Mobility: Normal Mallampati classification: II Thyromental Distance: greater than 6 cm Mental/Cognitive Status: Alert/Oriented X3, Normal for patient Plan Anesthesia Type: Epidural Consent for Procedure(s) Verified and Reviewed: Yes Code Status: Attempt Resuscitation ASA classification: 2-Mild systemic disease Is this case an emergency?: No
[2019-07-10] MEDS ORDERED: ROPIVACAINE 0.2% 200 MG/100 ML BAG EP PRN (02:09)
[2019-07-10] MEDS ORDERED: NALOXONE 0.4 MG/ML VIAL IVP PRN (02:09)
[2019-07-10] MEDS ORDERED: NALBUPHINE 10 MG/ML AMP IVP PRN (02:09)
[2019-07-10] MEDS ORDERED: ePHEDrine 50 MG/ML VIAL IVP PRN (02:09)
[2019-07-10] MEDS: ONDANSETRON 4 MG/2 ML VIAL IVP PRN (02:37)
[2019-07-10] MEDS: SODIUM CHLORIDE FLUSH 0.9% 10 ML SYRINGE IVP SCH ×2 (02:38→23:40)
[2019-07-10] MEDS: LACTATED RINGERS 1,000 ML IV SCH ×2 (02:43→08:05)
[2019-07-10] MEDS: miSOPROStoL 100 MCG TABLET BC SCH ×3 (02:55→10:12)
[2019-07-10] MEDS ORDERED: miSOPROStoL 200 MCG TABLET ONE ×2 (02:56→16:39)
[2019-07-10] MEDS: METOCLOPRAMIDE 10 MG/2 ML VIAL IVP PRN (06:12)
--- NOTE | 2019-07-10 09:07 | PROVIDER PROGRESS NOTE ---
Labor Progress Note - Uterine Monitoring Contraction Frequency (min/apart): 6 Contraction Intensity: positive: Mild - Monitoring Monitor Mode: positive: External ultrasound Heart Rate Baseline: 135 Heart Rate Variability: positive: Moderate (6-25 bmp) Accelerations: positive: Present, 15x15 Decelerations: positive: None Strip Review: positive: Category I - Vaginal Exam Dilation (in cm): 4.5 Effacement (%): 60 Station: 0 Cervical Position: Midposition - Labor Progress Note Labor Progress Note/Additional Text: minimal contractions. start pitocin. epidural working well.
[2019-07-10] MEDS ORDERED: OXYTOCIN/DEXTROSE 5 % 30 UNIT/500 ML BAG IV SCH (10:00)
--- NOTE | 2019-07-10 11:25 | PROVIDER PROGRESS NOTE ---
Labor Progress Note - Uterine Monitoring Uterine Monitoring Mode: positive: External toco Contraction Frequency (min/apart): 4-6 Contraction Intensity: positive: Mild to moderate Uterine Resting Tone: positive: Soft - Monitoring Monitor Mode: positive: External ultrasound Heart Rate Baseline: 140 Heart Rate Variability: positive: Moderate (6-25 bmp) Accelerations: positive: Present, 15x15 Decelerations: positive: None Strip Review: positive: Category I - Vaginal Exam Dilation (in cm): 5 Effacement (%): 60 Station: -1 Cervical Position: Posterior - Labor Progress Note Labor Progress Note/Additional Text: Cx dilating but not descending. will advance pit to drive head down then AROM
[2019-07-10] MEDS ORDERED: DEXTROSE 5% 1,000 ML IV SCH (14:00)
[2019-07-10] MEDS ORDERED: ROPIVACAINE 0.5% PF 20 ML AMPULE ONE (16:37)
[2019-07-10] MEDS ORDERED: CARBOPROST TROMETHAMINE 250 MCG/ML AMP IM ONE ×2 (16:39→18:41)
[2019-07-10] MEDS ORDERED: METHYLERGONOVINE 0.2 MG/ML AMP ONE (16:39)
[2019-07-10] MEDS ORDERED: LIDOCAINE-PF 2% 10 ML AMP SUBQ ONE (16:40)
[2019-07-10] MEDS ORDERED: MORPHINE PF 5 MG/10 ML AMP EP ONE (16:48)
[2019-07-10] MEDS ORDERED: ACETAMINOPHEN 1,000 MG/100 ML 100 ML IV ONE (16:48)
[2019-07-10] MEDS ORDERED: ONDANSETRON 4 MG/2 ML VIAL IVP ONE (16:48)
[2019-07-10] MEDS ORDERED: PHENYLEPHRINE 50 MG/5 ML VIAL IV ONE (16:48)
[2019-07-10] MEDS ORDERED: PROPOFOL 200 MG/20 ML VIAL IVP ONE (16:48)
[2019-07-10] MEDS ORDERED: ePHEDrine 50 MG/ML VIAL IVP ONE (16:48)
[2019-07-10] MEDS ORDERED: LACTATED RINGERS 1,000 ML IV ONE ×2 (17:06→18:29)
[2019-07-10] MEDS ORDERED: BUPIVACAINE 0.25% PF 30 ML VIAL SUBQ ONE (18:08)
[2019-07-10] MEDS ORDERED: BUPIVACAINE 0.25% PF 30 ML VIAL ONE (18:09)
[2019-07-10] MEDS ORDERED: METHYLERGONOVINE 0.2 MG/ML AMP IM PRN (18:41)
--- NOTE | 2019-07-10 18:49 | OPERATIVE REPORT ---
Operative Report - General Admit Date: 07/10/19 Procedure Date: 07/10/19 Planned Procedure: PLTC/S with possible bilateral salpingectomy Pre-Op Diagnosis: 39 weeks Possible uterine rupture Procedure Performed: PLTC/S with bilateral salpingectomy Post Op Diagnosis: 39 weeks placental abruption - Procedure Note Primary Surgeon: Ivan Periera MD Secondary Surgeon: Maggy MARIE Anesthesia Provider: Amos Lainez CRNA Anesthesia Technique: Epidural Pathology: Placenta IV Fluids (mL): 1,200 Estimated Blood Loss (mL): 1,000 Urine Output (mL): 700 Indications: 39 week with suspected uterine rujpture. Findings: retroplacental clott Complications: none
--- NOTE | 2019-07-10 20:26 | OPERATIVE REPORT ---
DATE OF SERVICE: 07/10/2019 Physician: Ivan Pereira MD PREOPERATIVE DIAGNOSES 1. A 39-week gestation. 2. Grand multipara. 3. Suspected uterine rupture. POSTOPERATIVE DIAGNOSES: 1. At 39 weeks' gestational age. 2. Grand multipara. 3. Placental abruption. PROCEDURE PERFORMED: Primary low transverse section with bilateral salpingectomy. SURGEON: Ivan Pereira MD WELL LOGGING OPERATOR MUD ANALYSIS: Maggy Guillaume, Certified Nurse Case Investigator. ANESTHESIA PROVIDER: DANIEL Brenner ANESTHESIA: Epidural. INTRAVENOUS FLUIDS: 1200. ESTIMATED BLOOD LOSS: 1000 mL URINE OUTPUT: 700 mL FINDINGS: Upon entering the abdominal cavity, infant was noted to be in the right occiput posterior position. There was a compound presentation with the hand presenting. There was evidence of clot, which appeared to be retroplacental in location. A live infant with Apgars 8 and 9. PROCEDURE IN DETAIL: Prior to the procedure, the risks and benefits were explained to patient and consent was signed. At this point, she was taking an expeditious back to the OR at which time she was prepped and draped in the usual fashion. Roche catheter had already been placed. Following a short timeout, patient's concerns as well as issues were addressed. At this point, she was prepped and draped in the usual fashion. A Pfannenstiel incision was carried down through the old scar from a previous dermoid cyst removal. There was a large amount of fibrous tissue. This was brought down to the anterior rectus fascia and the incision was carried laterally using Fleming scissors. At this point, the rectus was split along the midline. The peritoneum was entered high. Care was taken to avoid any injury to the bowel or bladder. Bladder flap was developed and following this, a low transverse uterine incision was accomplished using a #10 blade, bandage scissors and finger spread technique. The membranes were then ruptured. Clear amniotic fluid was encountered; however, there was evidence of clot, which appeared to be below the placenta, which was anterior. The head was noted to be right occiput posterior as well as a compound hand presentation. The infant was rotated occiput anterior and delivered through the incision. At this point, the remainder of the was delivered without difficulty. The cord was allowed to pulsate for roughly 30 seconds, then clamped. The infant appeared to be vigorous at this time. The cord was divided, and the infant was handed to the pediatric team that was standing by. At this point, a segment of cord was clamped for cord gas samples. Then, cord blood samples were obtained. The placenta was manually delivered. The uterus was exteriorized, wrapped in a moist lap and cleansed the internal portion with a dry lap. The incision was grasped with ring forceps and closed with a running locking suture of #0 Vicryl and imbricated with #0 Vicryl. There was evidence of good hemostasis. At this point, uterus was tipped forward and then the cul-de-sac was suctioned of any remaining clot or blood. The estimated blood loss was conducted at this time. At this point, the right fallopian tube was then grasped with Sada and the mesosalpinx was cauterized and divided with a handheld LigaSure all the way to the cornu. The incision site was inspected. No bleeding noted. The left fallopian tube was likewise grasped with Sada's and then starting at the fundus in a retrograde fashion, the mesosalpinx was cauterized and transected with the LigaSure all the way to the fimbriated end. This was inspected for bleeding, none was noted. At this point, the uterus was delivered back in the abdominal cavity. Gutters were noted to be free of any clots. The incision was inspected. There was a small area of bleeding, which was treated with a single ligature of #0 Vicryl. The lower uterine segment was inspected. No bleeding noted. At this point, the patient was having some difficulty with nausea and valsalving, so she was given propofol. The peritoneum was closed utilizing 2-0 Vicryl. The rectus reapproximated with 3 [id number] of 0 Vicryl and then the rectus was inspected for bleeding, none was noted. The fascia was closed utilizing looped PDS from the left hand side, which came to the midline and then a single PDS when the needle broke. This was then tied in the midline. Subcutaneous tissue was mobilized with electrocautery, inspected for bleeding, none was noted, and then this was closed utilizing 2-0 Vicryl. The incision itself was closed using 4-0 Monocryl. Next, 0.25% Marcaine plain was injected above the incision. A total of 20 mL was utilized. At this point, a wound VAC was applied and without the ability to obtain a good seal. This was removed and then replaced and a good seal was noted. The uterus was then expressed. No further clot was removed. Procedure was terminated. Sponge and needle counts were correct. The patient tolerated the procedure well and was taken to recovery in stable condition. TD: 07/10/2019 19:02 CATERINA
[2019-07-10] MEDS: ACETAMINOPHEN 500 MG TABLET PO SCH (20:51)
[2019-07-10] MEDS: DOCUSATE SODIUM 100 MG CAPSULE PO SCH (23:40)
[2019-07-10] MEDS: SODIUM CHLORIDE FLUSH 0.9% 10 ML SYRINGE IVP PRN (23:40)
[2019-07-11] MEDS: SODIUM CHLORIDE FLUSH 0.9% 10 ML SYRINGE IVP PRN (00:24)
[2019-07-11] MEDS: METOCLOPRAMIDE 10 MG/2 ML VIAL IVP PRN (00:24)
[2019-07-11] MEDS: ACETAMINOPHEN 500 MG TABLET PO SCH ×2 (05:15→17:24)
[2019-07-11] MEDS: SIMETHICONE CHEW 80 MG TABLET PO SCH ×3 (05:17→20:36)
[2019-07-11 06:22] LABS: BASOPHILS % (AUTO) 0.2 %; EOSINOPHILS % (AUTO) 0.2 %; HGB - HEMOGLOBIN 9.9 g/dL (12.0-16.0); LYMPHOCYTES # (AUTO) 2.1 10^3/uL (1.5-3.5); LYMPHOCYTES % (AUTO) 12.8 %; MEAN CORPUSCULAR HEMOGLOBIN 28.4 pg (27.0-31.0); MEAN CORPUSCULAR HGB CONC 32.2 g/dL (32.0-36.0); MEAN PLATELET VOLUME 11.7 fL (7.9-10.8); MONOCYTES % (AUTO) 6.2 %; NEUTROPHILS # (AUTO) 13.1 10^3/uL (1.5-6.6); NEUTROPHILS % (AUTO) 79.9 %; PLT - PLATELET COUNT 160 10^3/uL (130-450); RED BLOOD COUNT 3.49 10^6/uL (4.20-5.40); RED CELL DISTRIBUTION WIDTH 14.2 % (12.0-15.0); WHITE BLOOD COUNT 16.5 x10^3/uL (4.8-10.8)
[2019-07-11] MEDS: DOCUSATE SODIUM 100 MG CAPSULE PO SCH ×2 (08:29→20:36)
[2019-07-11] MEDS: oxyCODONE 5 MG TABLET PO PRN ×4 (08:29→22:08)
[2019-07-11] MEDS: ONDANSETRON 4 MG/2 ML VIAL IVP PRN (08:29)
[2019-07-11] MEDS: METOCLOPRAMIDE 10 MG TABLET PO PRN ×2 (13:17→22:08)
[2019-07-12] MEDS: ACETAMINOPHEN 500 MG TABLET PO SCH ×4 (01:42→18:24)
[2019-07-12] MEDS: oxyCODONE 5 MG TABLET PO PRN ×5 (04:15→21:11)
[2019-07-12] MEDS: METOCLOPRAMIDE 10 MG TABLET PO PRN ×3 (04:15→16:50)
[2019-07-12] MEDS: DOCUSATE SODIUM 100 MG CAPSULE PO SCH (08:32)
[2019-07-12] MEDS: SIMETHICONE CHEW 80 MG TABLET PO SCH ×4 (08:33→18:24)
[2019-07-12] MEDS: KETOROLAC 30 MG/ML VIAL IVP SCH ×3 (11:46→11:51)
[2019-07-12] MEDS: SODIUM CHLORIDE FLUSH 0.9% 10 ML SYRINGE IVP SCH ×5 (11:47→18:27)
[2019-07-12] MEDS: LACTATED RINGERS 1,000 ML IV SCH ×4 (11:47→11:53)
--- NOTE | 2019-07-12 12:58 | PROVIDER PROGRESS NOTE ---
Subjective - General Admit Date: 07/10/19 Procedure Date: 07/10/19 Post Op Days: 2 Procedure Performed: PLTc/S - Review of Systems Wound/Incisions: positive: Dressing dry and intact (wound VAC) General: positive: No symptoms (C/O sharp incisionl pain left of the midline. Electric) Gastrointestinal: positive: Flatus Objective - Patient Data Reviewed Vital Signs: Yes Vital Signs: Vital Signs x48h Temp Pulse Resp BP BP Pulse Ox 07/12/19 12:33 36.8 C 83 18 112/61 98 07/12/19 08:00 37.0 C 83 16 113/82 H 99 Intake & Output: Intake and Output Totals x24h 07/10/19 07/11/19 07/12/19 23:59 23:59 23:59 Intake Total 2632.544 3937 Output Total 1045 665 Balance 889.476 1656 - Lab Results Lab Results: 07/11/19 06:02 07/09/19 08:30 Other Lab Results: Lab Results x24hrs 07/11/19 07/09/19 Range/Units 06:02 08:30 WBC 16.5 H (4.8-10.8) x10^3/uL RBC 3.49 L (4.20-5.40) 10^6/uL Hgb 9.9 L (12.0-16.0) g/dL Hct 30.7 L (37.0-47.0) % MCV 88.0 (81.0-99.0) fL MCH 28.4 (27.0-31.0) pg MCHC 32.2 (32.0-36.0) g/dL RDW 14.2 (12.0-15.0) % Plt Count 160 (130-450) 10^3/uL MPV 11.7 H (7.9-10.8) fL Neut # (Auto) 13.1 H (1.5-6.6) 10^3/uL Lymph # (Auto) 2.1 (1.5-3.5) 10^3/uL [place] # (Auto) 1.0 (0.0-1.0) 10^3/uL Eos # (Auto) 0.0 (0.0-0.7) 10^3/uL Baso # (Auto) 0.0 (0.0-0.1) 10^3/uL Absolute Nucleated RBC 0.00 x10^3/uL Nucleated RBC % 0.0 /100WBC Crossmatch IS Only See Detail - Current Medications Current Medications: Current Medications Generic Name Dose Route Start Last Admin Trade Name Freq PRN Reason Stop Dose Admin Acetaminophen 650 mg 07/09/19 11:09 07/10/19 10:50 Tylenol PO 650 mg Q6H PRN Administration Pain or Fever > 38C (100.4F) Acetaminophen 1,000 mg 07/10/19 19:00 07/12/19 11:47 Tylenol PO Not Given Q8H TRELL Diphenhydramine HCl 25 - 50 mg 07/09/19 20:54 07/09/19 20:58 Benadryl PO 50 mg HS PRN Administration Insomnia Docusate Sodium 100 mg 07/10/19 21:00 07/12/19 08:32 Colace 100mg Capsule PO 100 mg BID TRELL Administration Ropivacaine 200 mg in 100 mls @ 0 mls/hr 07/10/19 02:09 07/10/19 08:47 Naropin 0.2% EP 10 mls/hr PRN PRN Administration PAIN Protocol Per Protocol Lactated Ringer's 1,000 mls @ 100 mls/hr 07/10/19 19:00 07/12/19 11:53 Lr IV Not Given .Q10H TRELL Metoclopramide HCl 5 mg 07/09/19 11:07 07/12/19 10:27 Reglan PO 5 mg Q6H PRN Administration HEADACHE Metoclopramide HCl 5 mg 07/10/19 06:04 07/11/19 00:24 Reglan Inj IVP 5 mg Q6HR PRN Administration Nausea / Vomiting Ondansetron HCl 4 mg 07/10/19 02:09 07/11/19 08:29 Zofran Inj IVP 4 mg Q6HR PRN Administration Nausea / Vomiting Oxycodone HCl 5 mg 07/10/19 18:41 07/12/19 12:49 Roxicodone PO 5 mg Q4HR PRN Administration PAIN Simethicone 80 mg 07/10/19 22:00 07/12/19 12:49 Mylicon PO 80 mg TID TRELL Administration Sodium Chloride 10 ml 07/10/19 18:41 07/11/19 00:24 Normal Saline Flush 0.9% IVP 10 ml PRN PRN Administration NEEDED PER PROVIDER ORDERS Sodium Chloride 10 ml 07/11/19 01:00 07/12/19 11:53 Normal Saline Flush 0.9% IVP Not Given 0100,0900,1700 TRELL - Physical Exam Wound/Incisions: positive: Dressing dry and intact General Appearance: positive: No acute distress, Alert, Mild distress Abdomen: positive: Non-tender, Nml bowel sounds, No distention Extremities: positive: Calf tenderness, Aleisha's sign/cords Neurologic/Psychiatric: positive: Oriented x3 Impression/Plan - Problem List Problem List: POD #2 progressing. nerve pain at incision Ice pack.
[2019-07-13] MEDS: oxyCODONE 5 MG TABLET PO PRN ×3 (01:15→10:48)
[2019-07-13] MEDS: METOCLOPRAMIDE 10 MG TABLET PO PRN ×2 (01:30→10:48)
[2019-07-13] MEDS: ACETAMINOPHEN 500 MG TABLET PO SCH (06:23)
[2019-07-13] MEDS: SIMETHICONE CHEW 80 MG TABLET PO SCH (10:48)
[2019-07-13] MEDS: DOCUSATE SODIUM 100 MG CAPSULE PO SCH (10:48)
[2019-07-13 11:55] VITALS: BP 128/64
--- NOTE | 2019-07-13 13:00 | Labor Flowsheet ---
Labor Flowsheet Datetime Report Generated by CPN: 07/13/2019 13:00 Datetime: 07/11/2019 08:42 VITAL SIGNS NBP Sys/Ashley/Mean (mmHg): 100 : 60 : 70 Pulse: 73 LaborFlag: Labor Datetime: 07/10/2019 19:38 SpO2 (%): 98 Datetime: 07/10/2019 18:42 Membranes Ruptured Date/Time: 07/10/2019 16:04 Datetime: 07/10/2019 16:43 Patient Care Comments: Pt transported to OR for C/S Datetime: 07/10/2019 16:30 UTERINE ACTIVITY Monitor Mode: External Monitor Interventions for UA: Mccormick Adjusted Frequency (min): 3-6 Quality: Moderate Duration (sec): 50-90 Pattern: Normal: <= 5 Contractions in 10 Minutes Resting Tone (Palpate): Relaxed ASSESSMENT A Monitor Mode: Alarm Mechanic Interventions for FHR: Ultrasound Adjusted FHR Baseline Rate : 135 FHR Baseline Changes: No Baseline Change Variability: Moderate 6-25 bpm Accelerations: None Decelerations: None Category: Category I Comments: interrupted tracing d/t maternal positioning Datetime: 07/10/2019 16:12 MEDICATIONS Pitocin (milliunits): Discontinued Datetime: 07/10/2019 16:04 VAGINAL EXAM Dilatation (cm): 7.0 Effacement (%): 90 Station: 0 Exam by: Dr. Pereira Membrane Status: Ruptured Membranes Rupture Method: Artificial Amniotic Fluid Color: Clear Amniotic Fluid Amount: Moderate Cervix, Consistency: Soft Cervix, Position: Midposition Datetime: 07/10/2019 16:01 COMMUNICATION Communication: RN at Bedside; Provider at Bedside Communication Comments: Dr Pereira @ bedside Datetime: 07/10/2019 15:49 Vaginal Bleeding: Moderate Vaginal Exam Comments: SVE per patient request Datetime: 07/10/2019 15:45 Contraction Comments: no ctx noted Datetime: 07/10/2019 15:00 Stage of : Labor Datetime: 07/10/2019 14:55 Anesthesia Comments: Per patient request, epidural infusion stopped Datetime: 07/10/2019 14:00 Anesthesia Level Check: T7 Datetime: 07/10/2019 13:20 Provider Notified (Name): DrElmer Pereira Notification Reason: Status Update; Bleeding Datetime: 07/10/2019 13:00 Oxygen Method: Room Air Datetime: 07/10/2019 12:24 Patient Position/Activity: Left Tilt Datetime: 07/10/2019 10:08 Pitocin Checklist: At Least 1 Acceleration of 15 bpm x 15 Seconds in 30 Minutes or Adequate Variabi lity; No More than 1 Late Deceleration Occurred in Past 30 Minutes; No More than 2 Variable Decelerat ions > 60 Seconds in Duration and decreasing >60 bpm in 30 minutes; No More than 5 Uterine Contractio ns in 10 Minutes for any 20 Minute Interval; Uterus Palpates Soft between Contractions Datetime: 07/10/2019 09:55 Temperature (C): 36.9 Datetime: 07/10/2019 09:10 Bedside Blood Glucose: 100 Datetime: 07/10/2019 07:11 PATIENT CARE IV/Blood Work: IV Bolus Started Datetime: 07/10/2019 06:13 Medication Comments: Reglan 5mg IV Datetime: 07/10/2019 05:19 Pain Presence: None/Denies Datetime: 07/10/2019 02:55 Cervical Ripening Agents: Cytotec @ Datetime: 07/10/2019 02:30 ANESTHESIA Anesthesia Plans: Epidural Datetime: 07/10/2019 01:50 Epidural Positioning: Sitting Epidural Procedure: Test Dose Datetime: 07/10/2019 01:33 PROCEDURE TIME OUT Procedure Verify: Correct Patient Identity; Accurate Procedure Consent Form; Agreement on Procedure to be Done Datetime: 07/10/2019 01:26 I/O Interventions: Up to BR Datetime: 07/10/2019 01:18 PAIN Pain Scale: 8 Pain Type: Contraction Pain Location: Abdomen Pain Relief Measures: Comfort Measures Pain Assessment Comments: using nitrous at this time Datetime: 07/10/2019 00:22 Pain Coping: Breathing Through Contractions; Sleeping Comfort Measures: Breathing/Relaxation Datetime: 07/09/2019 23:21 Respirations: 16 Datetime: 07/09/2019 20:58 Analgesics/Sedatives: Benadryl (mg) @ 50 Datetime: 07/09/2019 18:30 Pain Goal: 7
--- NOTE | 2019-07-29 20:19 | DISCHARGE SUMMARY ---
Physician: Ivan Pereira MD DATE OF ADMISSION: 07/10/2019 DATE OF DISCHARGE: 07/13/2019 ADMITTING DIAGNOSES 1. A 36 weeks, 12 para 7. 2. Grand multiparous. 3. Gestational diabetes. 4. Risk of hemorrhage. 5. Difficulty with patient compliance. DISCHARGE DIAGNOSES 1. A 36 weeks, 12 para 7. 2. Grand multiparous. 3. Gestational diabetes. 4. Risk of hemorrhage. 5. Difficulty with patient compliance. 6. Failure to progress. 7. Placental abruption. PROCEDURES 1. Misoprostol. 2. Epidural. 3. Pitocin augmentation. 4. Emergency low transverse section with bilateral salpingectomy. LABORATORIES: CBC on admission showed a white count of 10.9, hemoglobin 13.0, hematocrit 39.2, plate lets were 176. white count was 16.6, hemoglobin fell to 9.9, hematocrit 30.7, platelets w ere 160. The patient had blood sugars drawn throughout her labor; initially, they were 138, and from then on they remained 90, 100, 98, 98, and 132. HOSPITAL COURSE: Patient was admitted at which time she received cervical ripening. This was done w ith misoprostol. We monitored her blood sugars during labor because of her failure to comply with an tenatal blood sugar testing. Because of the risk of hemorrhage secondary to her grand mul tiparity, she had 2 units of blood typed and crossed. Patient progressed to 5 cm, but did not descen d. She developed uterine tenderness as well as vaginal bleeding. For this reason, suspicion of plac ental abruption was entertained. She was taken back to the OR for emergency section, which proceeded in an uneventful fashion. At time of procedure, there appeared to be a clot underneath the placenta. Her course has been unremarkable. Her diet was advanced and her bowel function returned. Her blood sugars remained normal. She was discharged to home on the with a wound VAC in place. DISCHARGE MEDICATIONS 1. Oxycodone. 2. Motrin. 3. Colace. TD: 07/29/2019 16:13
== END 2019-07-13 12:45 | disposition home or self-care (01) | DRG 783 ==
LOC: WFO 07:35 → FBP 07:38 → WFO 09:29 → UNDOADMOB 09:30 → FBP 09:30 → INTOOBSV 07-10 03:20 → OBSVTOIN 07-10 03:20 → FBP 07-11 13:18 → OBS 07-11 13:18 → UNDODISIN 07-13 12:45
PROVIDERS: ADMIT Obstetrics & Gynecology; ATTEND Obstetrics & Gynecology
PROC: 10D00Z1 Extraction of Products of Conception, Low, Open Approach (ICD-10-PCS; principal; 2019-07-10 16:30)
PROC: 0UT70ZZ Resection of Bilateral Fallopian Tubes, Open Approach (ICD-10-PCS; 2019-07-10 16:30)
DX: O24.429 Gestational diabetes mellitus in childbirth, unspecified control (principal); O45.93 Premature separation of placenta, unspecified, third trimester; Z37.0 Single live birth; O64.0XX0 Obstructed labor due to incomplete rotation of fetal head, not applicable or unspecified; O64.5XX0 Obstructed labor due to compound presentation, not applicable or unspecified; Z30.2 Encounter for sterilization; Z91.19 Patient's noncompliance with other medical treatment and regimen; Z87.51 Personal history of pre-term labor; Z3A.39 39 weeks gestation of pregnancy
CPT/HCPCS: 36415; 80048; 85025; 86850; 86900; 86901; 86920; 88302; 88307

== ENCOUNTER 2019-07-19 16:40 | Outpatient (CLI) | payer BC | END 2019-07-19 23:59 | disposition home or self-care (01) | LOC: LAB.R 16:40 | PROVIDERS: ATTEND Obstetrics & Gynecology | DX: Z98.890 Other specified postprocedural states (principal) | CPT/HCPCS: 87086 ==

== ENCOUNTER 2020-01-02 07:00 | Outpatient (CLI) | payer BC, MEDICAID | END 2020-01-02 23:59 | disposition home or self-care (01) | LOC: LAB.R 07:00 | PROVIDERS: ATTEND Physician Assistant | DX: Z11.59 Encounter for screening for other viral diseases (principal); H66.002 Acute suppurative otitis media without spontaneous rupture of ear drum, left ear ==

== ENCOUNTER 2020-05-03 13:49 | Emergency (ER) | payer BC, MEDICAID ==
--- NOTE | 2020-05-03 14:12 | ED Physician Documentation ---
PD HPI CHEST PAIN - Stated complaint Stated Complaint: RIGHT SIDED BODY & LUNG PX - Chief complaint Chief Complaint: Ext Problem - History obtained from History obtained from: Patient - History of Present Illness Timing - onset: How many days ago (2) Timing - onset during: Light activity Timing - duration: Days (2) Timing - details: Gradual onset, Still present (has had right upper chest pain, worse with breathing, radiating into right shoulder and upper back. No change with ROM of the shoulder.), Waxing and waning Quality: Aching, Sharp Location: Right chest (upper chest to shoulder and scapular area. No rash nor sores.) Radiation: Back, Right upper extremity (shoulder) Worsened by: Inspiration. No: Movement, Palpation Associated symptoms: Cough (last week, improved). No: Shortness of air, Nausea Similar symptoms before: Has not had sx before Review of Systems Constitutional: reports: Fever (for several days, resolved a week ago), Chills, Fatigue Nose: reports: Congestion. denies: Rhinorrhea / runny nose Throat: denies: Sore throat Cardiac: reports: Chest pain / pressure. denies: Palpitations, Pedal edema, Calf pain Respiratory: reports: Dyspnea, Cough (ended a week ago). 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 (Dermoid cyst removal) - Present Medications Home Medications: Ambulatory Orders Medication Instructions Recorded Confirmed Metoclopramide [Reglan] 10 mg PO ACHS PRN 30 Days #20 07/13/19 tablet oxyCODONE [Roxicodone] 5 mg PO Q4-6H PRN #15 tablet 07/13/19 polyethylene glycoL 3350 [Miralax] 17 gm PO DAILY PRN #1 bottle 07/13/19 Albuterol Sulf [Ventolin Hfa 1 - 2 puffs INH Q4HR PRN #1 inhaler 05/03/20 Inhaler] Benzonatate [Tessalon] 100 mg PO TID PRN #20 capsule 05/03/20 Hydrocodone/Acetaminophen [Moran 1 each PO Q6H PRN #20 tablet 05/03/20 5-325 Tablet] dexAMETHasone [Decadron] 4 mg PO DAILY #7 tablet 05/03/20 - Allergies Allergies/Adverse Reactions: Allergies Allergy/AdvReac Type Severity Reaction Status Date / Time ibuprofen AdvReac Hives Verified 05/03/20 13:51 isoniazid AdvReac Edema Verified 05/03/20 13:51 - Social History Smoking Status: Never smoker PD ED PE NORMAL - Vitals Vital signs reviewed: Yes - General General: Alert and oriented X 3, Well developed/nourished, Other (appears in pain at right upper chest/shoulder) - HEENT HEENT: Ears normal, Moist mucous membranes - Neck Neck: Supple, no meningeal sign, No bony TTP, No adenopathy - Cardiac Cardiac: RRR, No murmur - Respiratory Respiratory: Clear bilaterally - Abdomen Abdomen: Soft, Non tender - Derm Derm: Normal color, Warm and dry, No rash, Other (no skin sensitivity at neck nor shoulder) - Extremities Extremities: No tenderness to palpate, Normal ROM s pain - Neuro Neuro: Alert and oriented X 3, No motor deficit, Normal speech Results - Vitals Vitals: Vital Signs - 24 hr 05/03/20 05/03/20 13:51 15:47 Temperature 36.6 C 37.1 C Heart Rate 75 55 L Respiratory 19 18 Rate Blood Pressure 146/90 H 146/78 H O2 Saturation 100 100 Oxygen O2 Source Room air - Rads (name of study) chest xray Radiology: Prelim report reviewed (no infiltrates, PTX nor effusion. ), See rad report PD MEDICAL DECISION MAKING - ED course Complexity details: re-evaluated patient (CXR is normal, so no PTX, effusion nor pneumonia. Presume some pleurisy given URI a week ago. She asks about work. Her infectious symptoms resolved a week ago, so by CDC guidelines, would be able to return to work in another few days (10 days after symptoms resolution is most current).), considered differential (had URI symptoms and cough 1 - 1 1/2 weeks ago and was improved, but persists with some feeling of dyspnea, and now couple days right pleuritic upper chest pain. ), d/w patient Departure - Departure Disposition: 01 Home, Self Care Clinical Impression: Pleuritic chest pain Exacerbation of asthma Qualifiers: Asthma severity: mild Asthma persistence: intermittent Qualified Code(s): J45.21 - Mild intermittent asthma with (acute) exacerbation Condition: Stable Record reviewed to determine appropriate education?: Yes Instructions: ED Chest Pain Pleurisy Prescriptions: Albuterol Sulf [Ventolin Hfa Inhaler] 1 - 2 puffs INH Q4HR PRN #1 inhaler PRN Reason: Shortness Of Air/Wheezing dexAMETHasone [Decadron] 4 mg PO DAILY #7 tablet Hydrocodone/Acetaminophen [Moran 5-325 Tablet] 1 each PO Q6H PRN #20 tablet PRN Reason: Pain Benzonatate [Tessalon] 100 mg PO TID PRN #20 capsule PRN Reason: Cough Forms: Activity restrictions Discharge Date/Time: 05/03/20 15:25
[2020-05-03] MEDS ORDERED: DEXAMETHASONE 10 MG/ML VIAL PO STA (14:28)
[2020-05-03] MEDS ORDERED: HYDROcod/ACETAM 5/325 MG TABLET PO STA (14:28)
[2020-05-03] MEDS ORDERED: CHERRY SYRUP 10 ML UDC PO ONE (14:28)
[2020-05-03 15:48] VITALS: BP 146/78
--- NOTE | 2020-05-03 15:52 | XRAY Report ---
PROCEDURE: Chest 1 View X-Ray INDICATIONS: chest pain right upper TECHNIQUE: One view of the chest was acquired. COMPARISON: None. FINDINGS: Surgical changes and devices: None. Lungs and pleura: No pleural effusions or pneumothorax. Lungs are clear. Mediastinum: Mediastinal contours appear normal. Heart size is normal. Bones and chest wall: No suspicious bony lesions. Overlying soft tissues appear unremarkable. IMPRESSION: No acute cardiopulmonary abnormality. Reviewed by: Ankur Laura MD on 05/03/2020 2:50 PM [facility] Approved by: Ankur Laura MD on 05/03/2020 2:50 PM [facility] Station ID: [id number]
== END 2020-05-03 15:25 | disposition home or self-care (01) ==
LOC: ED 13:49
DX: R07.81 Pleurodynia (principal); J45.21 Mild intermittent asthma with (acute) exacerbation
CPT/HCPCS: 71045; 99284; A9270

== ENCOUNTER 2020-06-05 11:20 | Outpatient (CLI) | payer MEDICAID | END 2020-06-05 11:21 | disposition home or self-care (01) | LOC: COV 11:20 | PROVIDERS: ATTEND Family Medicine | DX: R50.9 Fever, unspecified (principal); Z20.822 Contact with and (suspected) exposure to COVID-19; R53.83 Other fatigue; J02.9 Acute pharyngitis, unspecified; R09.81 Nasal congestion; R11.0 Nausea ==

== ENCOUNTER 2021-01-13 18:27 | Outpatient (CLI) | payer MEDICAID | END 2021-01-13 18:28 | disposition home or self-care (01) | LOC: COV 18:27 | PROVIDERS: ATTEND Family Medicine | DX: U07.1 COVID-19 (principal) ==